=== PATIENT | male | born 1950 ===

== ENCOUNTER 2025-04-07 09:16 | Outpatient (AMB) | payer OTHER, SELFPAY ==
--- OUTSIDE RECORDS SUMMARY | 2025-04-07 09:45 | XMS_ITS | Encounter Summary ---
Author Organization [facility] Address [address] [address] Phone Care Team Providers Care Outreach Team Member Name Role Phone Christie Fernandez MD Primary Care Provider +1- [phone] Encounter Details Date Type Department Care Team (Late st Contact Info) Description 02/01/2023 Procedure Pass [facility] Endoscopy Admitting Dept Virtual Department [address] [place] [address] Social History Tobacco Use Types Packs/Day Years Used Date Smoking Tobacco: Former Smokeless Tobacco: Never Alcohol Use Standard Drinks/Week Comments Yes 7 (1 standard drink = 0.6 oz pur e alcohol) Education Answer Date Recorded Are you interested in more education? Not on james e 12/16/2022 Are you concerned about learning? Not on file 12/16/2022 No 12/16/2022 No 12/16/2022 Digital Access Answer Date Recorded No 01/14/2023 No 01/14/2023 Reliable internet access at home? Not on file 01/14/2023 Device with a working camera? Not on file Intimate Partner Violence Answer Date R ecorded Are you denied basic needs s uch as food, clothing, or medical care? No 02/01/2023 In the past 12 months have y ou been in a relationship with a person who hurts, threatens, or tries to control you? No 02/01/2023 Are you denied basic needs s uch as food, clothing, or medical care? No 02/01/2023 In the past 12 months have y ou been in a relationship with a person who hurts, threatens, or tries to control you? No 02/01/2023 Sex and Gender Information Value Date Recorded Sex Assigned at Not on file Legal Sex Male 10:04 PM EDT Gender Identity Not on file Sexual Orientation Not on file documented as of this encounter Plan of Treatment Not on file documented as of this encounter Visit Diagnoses Not on filedocumented in this encounter Care Teams Outreach Team Member Relationship Specialty Start Date End Date Christie Fernandez MD [email or web address] PCP - General Family Medicine 02/01/23 documented as of this encounter Additional Source Comments The information contained in this document represents components of the legal health record. It is not the complete legal health record.[facility]
== END 2025-04-07 10:10 | disposition home or self-care (01) ==
LOC: HO.HMGAL 09:16
PROVIDERS: PCP Family Medicine; Visit Provider Registered Nurse Emergency
DX: J30.89 Other allergic rhinitis (principal)
CPT/HCPCS: 95117; 95165

== ENCOUNTER 2025-04-28 09:19 | Outpatient (AMB) | payer OTHER, SELFPAY ==
--- OUTSIDE RECORDS SUMMARY | 2025-04-28 10:29 | XMS_ITS | Clinical Summary ---
Author Organization [facility] Address [address] [address] Phone Care Team Providers Care Minute Clerk Name Role Phone Christie Fernandez MD Primary Care Provider +1- [phone] Allergies Active Allergy Reactions Criticality Noted Date Comments Pollen Extracts Other (See Comments) Low 01/31/2023 Post nasal drip Medications atorvastatin (LIPITOR) 20 MG tabletIndicatio ns:hyperlipidem ia Take 20 mg by mouth daily. Indications: excessive fat in the blood Active fluticasone propionate (FLONASE) 50 mcg/actuation nasal sprayIndication s:allergic rhinitis 1 spray by Nasal route as needed. Indications: inflammation of the nose due to an allergy Active lisinopril (PRINIVIL,ZESTR IL) 10 MG tabletIndicatio ns:hypertension Take 10 mg by mouth daily. Indications: high blood pressure Active loratadine (CLARITIN) 10 mg tabletIndicatio ns:allergic rhinitis Take 10 mg by mouth as needed. Indications: inflammation of the nose due to an allergy Active Active Problems No known active problems Social History Tobacco Use Types Packs/Day Years Used Date Smoking Tobacco: Former Smokeless Tobacco: Never Tobacco Cessation:Counseling Given: Not Answered Alcohol Use Standard Drinks/Week Comments Yes 7 [...] on file Sexual Orientation Not on file Last Filed Vital Signs Vital Sign Reading Time Taken Comments Blood Pressure 125/82 02/01/2023 11:54 AM EDT Pulse 56 02/01/2023 11:54 AM EDT Temperature 36 C (96.8 F) 02/01/2023 10:32 AM EDT Respiratory Rate 14 02/01/2023 11:54 AM EDT Oxygen Saturation 98% 02/01/2023 11:54 AM EDT Inhaled Oxygen Concentration - - Weight 77.6 kg (171 lb) 01/31/2023 10:29 AM EDT Height 182.9 cm (6') 01/31/2023 10:29 AM EDT Body Mass Index 23.19 01/31/2023 10:29 AM EDT Plan of Treatment Health Maintenance Due Date Last Done Comments CREATININE LEVEL 1950 LIPID PANEL 1950 POTASSIUM LEVEL 1950 DEPRESSION SCREENING 1961 SMOKING Hx and SMOKELESS TOBACCO SCREENING 1962 HEPATITIS C SCREENING 1967 RSV VACCINE (1 - 1-dose 75+ series) 2024 INFLUENZA VACCINE (#1) 2025 2, 05/21/2021, 05/10/2021, Additional history exists COVID-19 VACCINE ( season) 2025 12/28/2022, 05/11/2022, 12/03/2021, Additional history exists Adult Td,Tdap Booster 12/30/2030 12/30/2020 , 07/19/2011, 01/06/2003 PNEUMOCOCCAL VACCINES (50+ years) Completed 10/30/2015, 10/24/2014 ZOSTER VACCINES Completed 05/16/2022, 100 08/2020, 05/10/2021, Additional history exists HEPATITIS A VACCINES Aged Out No long er eligible based on patient's age to complete this topic HIB VACCINES Aged Out No longer eligi ble based on patient's age to complete this topic MENINGOCOCCAL VACCINES (ACWY) Aged Out No longer eligible based on patient's age to complete this topic MENINGOCOCCAL VACCINES (B) Aged Out N o longer eligible based on patient's age to complete this topic Medical Devices Not on file Insurance [place] [id number] [facility] MEDICARE SUPPLEMENT [facility] HEALTH PLAN MEDICARE PART A & B [facility] MEDICARE SUPPLEMENT [facility] MEDICARE PART A & B MEDICARE SUPPLEMENT MEDICARE PART A & B MEDICARE SUPPLEMENT MEDICARE PART A & B Member Subscriber Plan / Payer (Ef fective 2014-Present) Name:Servando Velazquez Member ID:[id number] Relation to Subscriber:Self Name:Servando Velazquez Subscriber ID:[id number] Payer ID:[id number] Group ID:Not on file Type:Medicare Address: [employer] [address] [place] [id number] MEDICARE SUPPLEMENT Member Subscriber Plan / Payer (Ef fective 2018-Present) Name:Caroline Servando Relation to Subscriber:Self Name:Servando Velazquez Payer ID:Not on file Type:[employer]em[employer] Address: [address] [facility]ILY [facility] MEDICARE PART A & B [facility] [place] MEDICARE SUPPLEMENT MEDICARE PART A & B [facility] MEDICARE SUPPLEMENT [facility] FAMILY [facility] PLAN MEDICARE PART A & B [facility] MEDICARE SUPPLEMENT [facility] Address: [id number] [place] [address] FAMILY HEALTH PLAN MEDICARE PART A & B [facility] MEDICARE SUPPLEMENT HEALTH PLAN Care Teams Minute Clerk Relationship Specialty Start Date End Date Christie Fernandez MD [email or web address] PCP - General Family Medicine 02/01/23 Additional Source Comments The information contained in this document represents components of the legal health record. It is not the complete legal health record.[facility]
--- OUTSIDE RECORDS SUMMARY | 2025-04-28 10:29 | XMS_ITS | Encounter Summary ---
Author Organization [facility] Address [address] [facility] [address] [place] [address] Phone Care Team Providers Care Deputy Bailiff Name Role Phone Christie Fernandez MD Primary Care Provider +1- [phone] Encounter Details Date Type Department Care Team (Late st Contact Info) Description 02/01/2023 Procedure Pass [facility] Endoscopy Admitting Dept Virtual Department [address] [place] [address] Social History Tobacco Use Types Packs/Day Years [...] on filedocumented in this encounter Care Teams Deputy Bailiff Relationship Specialty Start Date End Date Christie Fernandez MD [email or web address] PCP - General Family Medicine 02/01/23 documented as of this encounter Additional Source Comments The information contained in this document represents components of the legal health record. It is not the complete legal health record.[facility]
== END 2025-04-28 09:22 | disposition home or self-care (01) ==
LOC: HO.HMGAL 09:19
PROVIDERS: PCP Family Medicine; Visit Provider Registered Nurse Emergency
DX: J30.89 Other allergic rhinitis (principal)
CPT/HCPCS: 95117; 95165

== ENCOUNTER 2025-05-26 09:23 | Outpatient (AMB) | payer OTHER, SELFPAY ==
--- OUTSIDE RECORDS SUMMARY | 2025-05-26 10:34 | XMS_ITS | Encounter Summary ---
Author Organization [facility] Address [address] [facility] [address] [place] [address] Phone Care Team Providers Care Chef Instructor Name Role Phone Christie Fernandez MD Primary Care Provider +1- [phone] Encounter Details Date Type Department Care Team (Late st Contact Info) Description 02/01/2023 Procedure Pass [facility] Endoscopy Admitting Dept Virtual Department [address] [place] [address] Social History Tobacco Use Types Packs/Day Years [...] on filedocumented in this encounter Care Teams Chef Instructor Relationship Specialty Start Date End Date Christie Fernandez MD [email or web address] PCP - General Family Medicine 02/01/23 documented as of this encounter Additional Source Comments The information contained in this document represents components of the legal health record. It is not the complete legal health record.[facility]
--- OUTSIDE RECORDS SUMMARY | 2025-05-26 10:34 | XMS_ITS | Clinical Summary ---
Author Organization [facility] Address [address] [address] Phone Care Team Providers Care Boat Hoist Operator Helper Name Role Phone Christie Fernandez MD Primary Care Provider +1- [phone] Allergies Active Allergy Reactions Criticality Noted Date [...] Insurance [place] [id number] [facility] MEDICARE SUPPLEMENT [facility] HEALTH PLAN MEDICARE PART A & B [facility] MEDICARE SUPPLEMENT [facility] MEDICARE PART A & B MEDICARE SUPPLEMENT MEDICARE PART A & B MEDICARE SUPPLEMENT MEDICARE PART A & B Member Subscriber Plan / Payer (Ef fective 2014-Present) Name:Servando Velzaquez Member ID:[id number] Relation to Subscriber:Self Name:Servando Velazquez Subscriber ID:[id number] Payer ID:[id number] Group ID:Not on file Type:Medicare Address: [employer] [address] [place] [id number] MEDICARE SUPPLEMENT Member Subscriber Plan / Payer (Ef fective 2018-Present) Name:Caroline Servando Relation to Subscriber:Self Name:Servando Velazquez Payer ID:Not on file Type:Indemni Address: [address] [facility] MEDICARE PART A & B [facility] [place] MEDICARE SUPPLEMENT MEDICARE PART A & B [facility] MEDICARE SUPPLEMENT [facility] FAMILY HEALTH PLAN MEDICARE PART A & B [facility] MEDICARE [facility] Address: [id number] [place] [address] FAMILY HEALTH PLAN MEDICARE PART A & B [facility] MEDICARE SUPPLEMENT HEALTH PLAN Care Teams Boat Hoist Operator Helper Relationship Specialty Start Date End Date Christie Fernandez MD [email or web address] PCP - General Family Medicine 02/01/23 Additional Source Comments The information contained in this document represents components of the legal health record. It is not the complete legal health record.[facility]
== END 2025-05-26 09:46 | disposition home or self-care (01) ==
LOC: HO.HMGAL 09:23
PROVIDERS: PCP Family Medicine; Visit Provider Registered Nurse Emergency
DX: J30.89 Other allergic rhinitis (principal)
CPT/HCPCS: 95117; 95165

== ENCOUNTER 2025-06-16 09:17 | Outpatient (AMB) | payer OTHER, SELFPAY ==
--- OUTSIDE RECORDS SUMMARY | 2025-06-16 10:12 | XMS_ITS | Encounter Summary ---
Author Organization [facility] Address [address] [facility] [address] [place] [address] Phone Care Team Providers Care Proof Machine Operator Supervisor Name Role Phone Christie Fernandez MD Primary Care Provider +1- [phone] Encounter Details Date Type Department Care Team (Late st Contact Info) Description 02/01/2023 Procedure Pass [facility] Endoscopy Admitting Dept Virtual Department [address] [place] [address] Social History Tobacco Use Types Packs/Day Years [...] on filedocumented in this encounter Care Teams Proof Machine Operator Supervisor Relationship Specialty Start Date End Date Christie Fernandez MD [email or web address] PCP - General Family Medicine 02/01/23 documented as of this encounter Additional Source Comments The information contained in this document represents components of the legal health record. It is not the complete legal health record.[facility]
--- OUTSIDE RECORDS SUMMARY | 2025-06-16 10:12 | XMS_ITS | Clinical Summary ---
Author Organization [facility] Address [address] [address] Phone Care Team Providers Care Dinkey Press Operator Name Role Phone Christie Fernandez MD Primary Care Provider +1- [phone] Allergies Active Allergy Reactions Criticality Noted Date [...] Insurance [place] [id number] [facility] MEDICARE SUPPLEMENT [facility] HEALTH PLAN MEDICARE PART A & B [facility] MEDICARE SUPPLEMENT [facility] MEDICARE PART A & B Member Subscriber Plan / Payer (Ef fective 2014-Present) Name:Servando Velazquez Member ID:[id number] Relation to Subscriber:Self Name:Servando Velazquez Subscriber ID:[id number] Payer ID:[id number] Group ID:Not on file Type:Medicare Address: [facility] [employer] [facility] [address] [place] [address] MEDICARE SUPPLEMENT MEDICARE PART A & B MEDICARE SUPPLEMENT MEDICARE PART A & B Member Subscriber Plan / Payer (Ef fective 2014-Present) Name:Servando Velazquez Member ID:[id number] Relation to Subscriber:Self Name:Servando Velazquez Subscriber ID:[id number] Payer ID:[id number] Group ID:Not on file Type:Medicare Address: [employer] [address] [place] [id number] MEDICARE SUPPLEMENT Member Subscriber Plan / Payer (Ef fective 2018-Present) Name:Caroline Servando Relation to Subscriber:Self Name:Servando Velazquez Payer ID:Not on file Type:Indemni Address: [address] FAMILY [employer] PLAN MEDICARE PART A & B [facility] [place] MEDICARE SUPPLEMENT MEDICARE PART A & B [facility] MEDICARE SUPPLEMENT [facility] FAMILY HEALTH PLAN MEDICARE PART A & B [facility] MEDICARE [facility]PPLEMENT [facility] Address: [id number] [place] [address] FAMILY HEALTH PLAN MEDICARE PART A & B [facility] MEDICARE SUPPLEMENT HEALTH PLAN Care Teams Dinkey Press Operator Relationship Specialty Start Date End Date Christie Fernandez MD [email or web address] PCP - General Family Medicine 02/01/23 Additional Source Comments The information contained in this document represents components of the legal health record. It is not the complete legal health record.[facility]
== END 2025-06-16 09:18 | disposition home or self-care (01) ==
LOC: HO.HMGAL 09:17
PROVIDERS: PCP Family Medicine; Visit Provider Registered Nurse Emergency
DX: J30.89 Other allergic rhinitis (principal)
CPT/HCPCS: 95117; 95165

== ENCOUNTER 2025-07-14 09:47 | Outpatient (AMB) | payer OTHER, SELFPAY | END 2025-07-14 09:47 | disposition home or self-care (01) | LOC: HO.HMGAL 09:47 | PROVIDERS: PCP Family Medicine; Visit Provider Registered Nurse Emergency | DX: J30.89 Other allergic rhinitis (principal) | CPT/HCPCS: 95117; 95165 ==

== ENCOUNTER 2025-08-11 09:15 | Outpatient (AMB) | payer OTHER, SELFPAY ==
--- OUTSIDE RECORDS SUMMARY | 2025-08-11 10:15 | XMS_ITS | Clinical Summary ---
Author Organization [facility] Address [address] [address] Phone Care Team Providers Care Post Framer Name Role Phone Christie Johnson MD Primary Care Provider +1- [phone] Allergies Active Allergy Reactions Criticality Noted Date [...] TOBACCO SCREENING 1962 HEPATITIS C SCREENING 1967 COLOGUARD 1994 FIT TEST 1994 FOBT 1994 SIGMOIDOSCOPY 1994 VIRTUAL COLONOSCOPY 1994 RSV VACCINE (1 - 1-dose 75+ series) 2024 INFLUENZA VACCINE (#1) 2025 2, 05/21/2021, 05/10/2021, Additional history exists COVID-19 VACCINE ( season) 2025 12/28/2022, 05/11/2022, 12/03/2021, Additional history exists Adult Td,Tdap Booster 12/30/2030 12/30/2020 , 07/19/2011, 01/06/2003 COLONOSCOPY 02/01/2033 02/01/2023 COLORECTAL CANCER SCREENING 02/01/2033 PNEUMOCOCCAL VACCINES (50+ years) Completed 10/30/2015, 10/24/2014 ZOSTER VACCINES Completed 05/16/2022, 1008/2020, 05/10/2021, Additional history exists HEPATITIS A VACCINES [...] this topic Medical Devices Not on file Procedures Procedure Name Priority Date/Time Associated Diagnosis Comments ENDOSCOPY, COLON 02/01/2023 11:1 7 AM EDT from Last 3 Months or Most Recently Relevant to Health Maintenance Results * ENDOSCOPY, COLON (02/01/2023 11:17 AM EDT) Narrative Transcriptions Simon Cortes MD - 02/01/2023 11:17 AM EDT [facility] Patient Name: Servando Mckay MD:: SIMON CORTES MD, Procedure Date: 02/01/2023 11:17 AM Date of : 1950 Age: 72 Admit Type: Outpatient Gender: Male Room: [facility] Referring MD: CHRISTIE JOHNSON MD Exam Type: Colonoscopy Indications: Screening for colorectal malignant neoplasm, Last colonoscopy: August 2011 Medications: Monitored Anesthesia Care Procedure: Informed consent was obtained from the patientafter discussion of the indications, limitations, alternatives, benefits, and risks of the procedure. Risks specifically discussed include but are not limited to medication reactions, missed lesions, bleeding, perforation, or the need for emergent surgery. Throughout the procedure, the patient's blood pressure, pulse, end-tidal CO2, and oxygensaturations were monitored continuously. The Olympus adult variable colonoscope [id number] #4 was introduced through the anus and advanced to the terminal ileum, with identification of theappendiceal orifice and IC valve. The colonoscopy was performed without difficulty. The patient tolerated the procedure well. The quality of the bowelpreparation was excellent. The terminal ileum, ileocecal valve, appendiceal orifice, and rectum werephotographed. Complications: No immediate complications. Estimated blood loss:None. Findings: The terminal ileum appeared normal. Examination of the right colon was repeated in retroflexion and again in NBI. Retroflexion wasalso performed in the rectum. Many diverticula were found in the sigmoid colon. The exam was otherwise without abnormality. Impression: - The examined portion of the ileum was normal. - Diverticulosis in the sigmoid colon. - The examination was otherwise normal. - No specimens collected. Recommendation: - Patient has a contact number available for emergencies. The signs and symptoms of potential delayed complications were discussed with thepatient. Return to normal activities tomorrow. Written discharge instructions were provided to thepatient. - Repeat colonoscopy in 10 years for screening purposes. Simon Cortes SIMON CORTES MD 02/01/2023 11:45:54 AM This report has been signed electronically. Number of Addenda: 0 Note Initiated On: 02/01/2023 11:17 AM Procedure Code(s): --- Professional --- 69997, Colonoscopy, flexible; diagnostic, including collection of specimen(s) by brushing or washing, when performed (separateprocedure) --- Technical --- 36199, Colonoscopy, flexible; diagnostic, including collection of specimen(s) by brushing or washing, when performed (separateprocedure) CPT copyright 2021 [employer]. All rights reserved. The codes documented in this report are preliminary and upon plant hr manager reviewmay be revised to meet current compliance requirements. Procedure Date: 02/01/2023 11:17:[address] [place] [id number] Christie Johnson MD GI PROCEDURE ORDERABLES Fi nal Result from Last 3 Months or Most Recently Relevant to Health Maintenance Insurance MEDICARE PART A & B [facility] MEDICARE SUPPLEMENT [facility] MEDICARE [facility] A & B [facility] MEDICARE [facility]PPLEMENT [facility] MEDICARE PART A & B MEDICARE SUPPLEMENT MEDICARE PART A & B MEDICARE SUPPLEMENT MEDICARE PART A & B [facility] MEDICARE SUPPLEMENT [facility] MEDICARE PART A & B [facility] MEDICARE SUPPLEMENT MEDICARE PART A & B MEDICARE SUPPLEMENT [facility] HE[facility] PLAN MEDICARE PART A & B [facility] MEDICARE SUPPLEMENT [facility] MEDICARE PART A & B [facility] MEDICARE SUPPLEMENT [facility] HEALTH PLAN Care Teams Post Framer Relationship Specialty Start Date End Date Christie Johnson MD PCP - General Family Medicine 02/01/23 Additional Source Comments The information contained in this document represents components of the legal health record. It is not the complete legal health record.[facility]
--- OUTSIDE RECORDS SUMMARY | 2025-08-11 10:15 | XMS_ITS | Clinical Summary ---
Author Organization [facility] Address [address] [place] [address] Care Team Providers Care Automatic Pilot Mechanic Name Role Phone Christie Fernandez MD Primary Care Provider [phone] Christie Fernandez MD Unavailable [phone] Shaka Rivas MD [facility] Unavailable [phone] Allergies No known active allergies Medications loratadine (CLARITIN) 10 mg tablet Take 1 tablet (10 mg total) by mouth daily. Active atorvaSTATin (LIPITOR) 20 MG tablet Take 1 tablet (20 mg total) by mouth daily. Active lisinopril (ZESTRIL) 10 MG tablet Take 2 tablets (20 mg total) by mouth daily. Active fluticasone propionate (FLONASE) 50 mcg/actuation nasal spray 1 spray by Each Nare route daily. Active tamsulosin (FLOMAX) 0.4 mg cap 24 hr capsule Take 1 capsule (0.4 mg total) by mouth daily for 360 days. 90 capsule 3 03/27/2025 6 Active Active Problems Problem Noted Date Diagnosed Date Malignant neoplasm of prostate 10/24/2019 Elevated prostate specific antigen (PSA) 019 Family History Medical History Relation Comments Breast cancer Mother Breast cancer Sister Relation Status Comments Mother Sister Social History Tobacco Use Types Packs/Day Years Used Date Smoking Tobacco: Former Smokeless Tobacco: Former Tobacco Cessation:Counseling Given: Not Answered Alcohol Use Standard Drinks/Week Comments Yes 7 (1 standard drink = 0.6 oz pur e alcohol) Sex and Gender Information Value Date Recorded Sex Assigned at Male 10/24/2019 8:10 AM EST Legal Sex Male 1:52 PM EDT Gender Identity Male 10/24/2019 8:10 AM EST Sexual Orientation Not on file Last Filed Vital Signs Vital Sign Reading Time Taken Comments Blood Pressure 145/96 03/07/2024 10:28 AM EDT Pulse 64 03/07/2024 10:28 AM EDT Temperature 36.2 C (97.1 F) 03/07/2024 10:28 AM EDT Respiratory Rate 16 06/30/2021 9:50 AM EST Oxygen Saturation - - Inhaled Oxygen Concentration - - Weight 77.1 kg (170 lb) 04/26/2024 8:27 AM EDT Height 182.9 cm (6') 04/26/2024 8:27 AM EDT Body Mass Index 23.06 04/26/2024 8:27 AM EDT Plan of Treatment Upcoming Encounters Date Type Department Care Team (Late st Contact Info) Description 04/04/2026 9:30 AM EDT Lab [facility] [address] [place] [address] - [address] [place] [id number] In Person with 04/04/2026 10:30 AM EDT Appointment [facility] MRI [facility] [address] [place] [address] Raad Escobedo MD [address] [facility] [address] [place] [address] In Person with Resource 04/09/2026 10:45 AM EDT Office Visit Department of Urology, [address] [facility] [address] [place] [address] Raad Escobedo MD [address] [place] [address] [place] [id number] In Person with Physician Health Maintenance Due Date Last Done Comments Depression Screening 1962 Hepatitis C Screening 1968 Medicare Initial AWV G0438 02/18/2015 Blood Pressure 03/07/2025 03/07/2024 COVID-19 Vaccine ( season) 2025 05/15/2024, 01/13/2024, 05/12/2023, Additional history exists Influenza Vaccine (#1) 2025 , 05/15/2024, 05/16/2023, Additional history exists DTaP,Tdap,and Td Vaccines (5 - Td or Tdap) 12/30/2030 12/30/2020, 12/30/2020, 07/19/2011, Additional history exists Pneumococcal Vaccine: 50+ Years Completed 10/30/2015, 10/24/2014 Zoster Vaccine Completed 05/16/2022, 10/0 08/2020, 05/10/2021, Additional history exists Meningococcal B Vaccines Aged Out No longer eligible based on patient's age to complete this topic Meningococcal Vaccines Aged Out No lo nger eligible based on patient's age to complete this topic Insurance Care Teams Automatic Pilot Mechanic Relationship Specialty Start Date End Date Christie Fernandez MD [address] [place] [address] PCP - General Family Practice 11/07/23 Christie Fernandez MD [address] [place] [address] PCP - Insurance Assigned PCP 11/07/23 Shaka Rivas MD MPH [address] [place] [address] [address] [place] [address] Radiation Oncologist Radiation Oncology 04/27/24
--- OUTSIDE RECORDS SUMMARY | 2025-08-11 10:15 | XMS_ITS | Encounter Summary ---
Author Organization [facility] Address [address] [facility] [address] [place] [phone] Phone Care Team Providers Care Emergency Medcl Emt Name Role Phone Christie Fernandez MD Primary Care Provider [phone] Encounter Details Date Type Department Care Team (Late st Contact Info) Description 02/01/2023 Procedure Pass [facility] Endoscopy Admitting Dept Virtual Department [address] [place] [address] Social History Tobacco Use Types Packs/Day Years [...] on filedocumented in this encounter Care Teams Emergency Medcl Emt Relationship Specialty Start Date End Date Christie Fernandez MD [email or web address] PCP - General Family Medicine 02/01/23 documented as of this encounter Additional Source Comments The information contained in this document represents components of the legal health record. It is not the complete legal health record.[facility]
== END 2025-08-11 09:15 | disposition home or self-care (01) ==
LOC: HO.HMGAL 09:15
PROVIDERS: PCP Family Medicine; Visit Provider Registered Nurse Emergency
DX: J30.89 Other allergic rhinitis (principal)
CPT/HCPCS: 95117; 95165